=== PATIENT | male | born 1970 | race Caucasian/White ===

== ENCOUNTER 2017-09-07 17:03 | Inpatient (IN) | payer BC, OTHER ==
[~2017-09-07] VITALS: Ht 188 cm; Wt 154.2 kg
[2017-09-07 17:50] VITALS: BP 150/97
--- NOTE | 2017-09-07 17:50 | NUR ---
Pre-Admission Assessment Ex Assistant/Program Director encounters pt in intake office with family present. Pt has a blunted affect and depressed mood, sensitive to light and complains of muscle spasm and fatigue. Pt's initial COWS 13. Pt endorses using 0.5 grams of Heroin daily, via smoking. Pt endorses using for a few years. Pt's last use was 09/05/17 when he consumed 1 gram. Pt is currently at [facility], since 09/05/17. Pt has been to treatment a couple of times, including presently at [place], [place] in 2014 and [facility] in 2018. Pt endorses a PMH of DM II, Gout, HTN and had [place] Palsy last month. Pt is seen by Dr. Buchanan at [facility]. Pt is A/O x4 and able to make needs known. Pt denies HI/SI, A/VH or any other associated symptoms.
[2017-09-07] MEDS ORDERED: METF10004 PO (18:18)
[2017-09-07] MEDS ORDERED: ALLO100T PO (18:18)
[2017-09-07] MEDS ORDERED: ATOR40TA PO (18:18)
[2017-09-07] MEDS ORDERED: METO-357 PO (18:18)
[2017-09-07] MEDS ORDERED: LISI1TAB11 PO (18:18)
[2017-09-07] MEDS ORDERED: FURO20TA4 PO (18:18)
[2017-09-07] MEDS ORDERED: FOLI1TAB16 PO (18:18)
[2017-09-07 18:30] LABS: *AMPHETAMINE, URINE NEGATIVE (NEGATIVE); *BARBITURATE, URINE NEGATIVE (NEGATIVE); *CANNABINOID, URINE NEGATIVE (NEGATIVE); *COCCAINE, URINE POSITIVE (NEGATIVE); *OPIATE, URINE POSITIVE (NEGATIVE); *PHENCYCLIDINE SCREEN,URINE NEGATIVE (NEGATIVE)
[2017-09-07] MEDS ORDERED: LOPERAMIDE HCL 2 MG CAPSULE PO PRN ×2 (19:00)
[2017-09-07] MEDS ORDERED: BUPRENORPHINE HCL 2 MG TAB.SUBL SL PRN (19:00)
[2017-09-07] MEDS ORDERED: DICYCLOMINE HCL 20 MG TABLET PO PRN (19:00)
[2017-09-07] MEDS ORDERED: ONDANSETRON ODT 4 MG TAB.RAPDIS SL PRN (19:00)
[2017-09-07] MEDS ORDERED: ACETAMINOPHEN 325 MG TABLET PO PRN (19:00)
[2017-09-07] MEDS ORDERED: HYDROXYZINE PAMOATE 25 MG CAPSULE PO PRN (19:00)
[2017-09-07] MEDS ORDERED: MIRALAX 17 GM POWD.PACK PO PRN (19:00)
[2017-09-07] MEDS ORDERED: MAGNESIUM HYDROXIDE 30 ML LIQUID UDC PO PRN (19:00)
[2017-09-07] MEDS ORDERED: MAG HYDROX/AL HYDROX/SIMETH 30 ML LIQUID UDC PO PRN (19:00)
[2017-09-07] MEDS ORDERED: ONDANSETRON 4 MG/2 ML VIAL IM PRN (19:00)
[2017-09-07] MEDS ORDERED: IBUPROFEN 600 MG TABLET PO PRN (19:00)
[2017-09-07] MEDS: LISINOPRIL 20 MG TABLET PO SCH ×2 (19:22→19:38)
[2017-09-07] MEDS ORDERED: NICOTINE POLACRILEX 4 MG GUM-PK OF TEN BC PRN (19:30)
[2017-09-07] MEDS ORDERED: NICOTINE 14 MG/24HR PATCH TD PRN (19:30)
[2017-09-07 20:00] VITALS: BP 152/97
--- NOTE | 2017-09-07 20:00 | NUR ---
Admission Note Pt is a 47 year old male admitted to [facility] on 09/07/2017 for Opiate Withdrawal, on the unit at 2000. Pt has NKA, denies history of seizures. Pt was able to provide urine drug screen. COWS 9: pt presents with aches, skin is flushed, and fatigue, BS BP 152/97, pulse 104, resp 16, Spo2 98% room air, weight 340 pounds and height 62. Pt reports his primary care provider is Dr. Buchanan at [facility]. Pt reports he smokes 1 pack of cigarettes daily, denies being hospitalized within the past 30 days. Pt is fatigued, and reports, I just want to sleep. Pt responses to assessment questions are vague. Substance abuse History is as follows: Heroin 1g/daily last intake of 1 gram on 09/05/2017, at this rate for the past 1 year. Cocaine pt uses unspecified quantities, non-daily. Pt reports his reason for hospitalization is because, "I want to stop using heroin". Pt reports his trigger to use is due to increased anxiety and mal-adaptive coping mechanisms. When pt does not use heroin he reports signs and symptoms of "body aches, sweats, anxiety, and fatigue". Pt reports he has been to other treatment center, however is a poor historian regarding treatment history, pt cannot recall the dates of his stay. He reports being to [place], to a treatment center in [place] and to [facility]. Past medical history: DM II, HTN, Dyslipidemia, Gout, [place] Palsy (1 month ago) and surgical repair of umbilical hernia. Upon assessment, respirations even/unlabored, denies SOB/chest pain, PERRLA. Skin is noted to be clammy, bowel sounds hyperactive x4 quadrants, skin is intact. Pt denies SI/HI. Educational packets provided and left at bed side, pt oriented to room an encouraged to nofiy staff with any concerns. Safety measures in place, call light within reach, side rails up x2, bed locked and in low position. Will continue to monitor.
[2017-09-07 21:00] VITALS: BP 143/83
[2017-09-07 21:11] LABS: BASOPHILS # (AUTO) 0.1 K/uL (0.0-8.0); BASOPHILS % (AUTO) 0.8 % (0.0-2.0); EOSINOPHILS % (AUTO) 0.2 % (0.0-7.0); LYMPHOCYTES % (AUTO) 18.2 % (20.5-51.5); MEAN CORPUSCULAR HEMOGLOBIN 24.9 uug (23.8-33.4); MEAN CORPUSCULAR HGB CONC 33 g/dL (32.5-36.3); MEAN CORPUSCULAR VOLUME 74.7 fL (73.0-96.2); MONOCYTES # (AUTO) 0.6 K/uL (2.0-10.0); MONOCYTES % (AUTO) 5.9 % (0.0-11.0); NEUTROPHILS # (AUTO) 8.2 K/uL (1.8-8.9); NEUTROPHILS % (AUTO) 74.9 % (38.5-71.5); PLATELET COUNT (AUTO) 396 K/uL (152-348); RED BLOOD CELL COUNT(AUTO) 5.62 MIL/uL (4.06-5.63); WHITE BLOOD COUNT (AUTO) 10.9 K/uL (3.6-10.2)
[2017-09-07 21:29] LABS: ALANINE AMINOTRANSFERASE 18 U/L (16-63); ALKALINE PHOSPHATASE 90 U/L (50-136); ASPARTATE AMINOTRANSFERASE 16 U/L (15-37); CARBON DIOXIDE 28 mmol/L (21-32); CHLORIDE 96 mmol/L (98-107); CREATININE 1.1 mg/dL (0.6-1.3); GLUCOSE 293 mg/dL (74-106); MAGNESIUM 1.7 mg/dL (1.8-2.4); POTASSIUM 3.3 mmol/L (3.5-5.1); TOTAL PROTEIN, SERUM 7.8 g/dL (6.4-8.2); UREA NITROGEN, BLOOD 17 mg/dL (7-18)
[2017-09-07 21:34] LABS: ETHANOL < 3 MG/DL (0-0)
--- NOTE | 2017-09-07 22:00 | NUR ---
Nursing note Pt COWS 9, pt presents in bed, sleeping, easily arousable to name. Pt offered medications, however pt states, "No, I don't want Subutex, I don't want that stuff. I don't want anything please, I am sorry, I just want to sleep" Safety measures in place, will continue to monitor.
[2017-09-08] VITALS (8 sets, daily range): BP systolic 145–179; BP diastolic 93–107
[2017-09-08] MEDS: CLONIDINE HCL 0.1 MG TABLET PO PRN ×2 (00:23→11:59)
--- NOTE | 2017-09-08 00:30 | NUR ---
PRN Administration BP 167/99, Pulse 89. Pt denies SOB or chest pain. Clonidine 0.1mg PRN administered. Safety measures in place, will continue to monitor.
--- NOTE | 2017-09-08 01:35 | NUR ---
PRN Reassessment/Administration BP 179/99, pulse 98, Clonidine 0.1mg PRN not effective. Pt denies chest pain or SOB. Hydralazine 25mg PRN and Ativan 2mg PRN administered. Safety measures in place, will continue to monitor
[2017-09-08] MEDS ORDERED: hydrALAZINE HCL 25 MG TABLET PO ONE (02:00)
[2017-09-08] MEDS: LORAZEPAM 1 MG TABLET PO PRN ×2 (02:05→11:59)
--- NOTE | 2017-09-08 02:35 | NUR ---
PRN Reassessment Upon reassessment, pt is in bed, noted to be sleeping with eyes closed, sitter at bedside, Safety measures in place, will continue to monitor. Addendum: 09/08/17 at 0411 by JAMES CAROLINA RN WRONG NOTE - DISREGARD
--- NOTE | 2017-09-08 02:35 | NUR ---
PRN Reassessment BP 150/98, pulse 80, resp 19. Pt in bed, sleeping, resp even/unlabored. Safety measures in place, will continue to monitor.
--- NOTE | 2017-09-08 04:00 | NUR ---
COWS Deferred d/t pt sleeping - to assess while pt is awake as ordered. BP 145/96, pulse 70, Spo2 96% RA. Pt is in bed, noted to be sleeping with eyes closed Safety measures in place, will continue to monitor.
--- NOTE | 2017-09-08 07:00 | NUR ---
End of Shift Pt is a 47 year old male admitted for Opiate withdrawal. During shift, pt remained in room all throughout shift. Pt refused Subutex available and stated, "No, I dont want Subutex, I dont want anything please, I just want to sleep". Pt educated regarded medications and their benefits. Pt presented with elevated blood pressure, Clonidine 0.1mg PRN, Hydralazine 25mg PRN, Ativan 2mg PRN administered along with scheduled BP medications. BP 179/99 eventually decreased to 145/96. Pt continues to refuse Subutex, COWS 9. Pt slept for 11 hours, intake of 500 ml PO, voids x1. Safety measures in place, Endorsed to day shift nurse.
--- NOTE | 2017-09-08 08:05 | NUR ---
START OF SHIFT PT IS A 47 Y/O M ADMITTED FOR MEDICALLY SUPERVISED OPIATE WITHDRAWAL. PT IS PLACED ON PRN SUBUTEX HOWEVER HAS REFUSED TO TAKE IT AT THIS TIME. PT STATES, "I WANT TO TRY TO DO THIS WITHOUT TAKING IT, I REALLY DONT WANT TO TAKE ANY MEDS RIGHT NOW. PT WAS OKAY WITH TAKING BP MEDS, METFORMIN, MAG OX, K+ REPLACEMENTS." EDUCATED PT WITH MEDICATION BENEFITS. PT APPEARS FLUSHED, DIAPHORETIC, BEADS OF SWEAT ON FACE, PRESENTS HIGH BP, DILATION OF THE PUPILS, RUNNY NOSE, YAWNING, HOT/COLD FLASHES, CHILLS, RESTLESSNESS, ANXIETY AND AGITATION, HIGHLY IRRITABLE, LOSS OF APPETITE. PT REFUSED TO HAVE SIDE RAILS UPX2, HAS THE BED FLAT. EDUCATED PT ON MEDICATIONS, BENEFITS AND EFFECTS, AND S/S TO REPORT. ENCOURAGED PT TO INCREASE FLUIDS TOLERATED. SIDE RAILS UPX2, BED IN LOWEST POSITION. CALL LIGHT IS WITHIN REACH. SAFETY MEASURES IN PLACE. WILL CONTINUE TO MONITOR.
[2017-09-08] MEDS: ALLOPURINOL 100MG PO SCH (08:24)
[2017-09-08] MEDS: METFORMIN 1000MG PO SCH ×2 (08:24→17:04)
[2017-09-08] MEDS: FOLIC ACID 1MG PO SCH (08:24)
[2017-09-08] MEDS: LISINOPRIL 20 MG TABLET PO SCH (08:24)
[2017-09-08] MEDS: FUROSEMIDE 20 MG PO SCH (08:25)
[2017-09-08] MEDS ORDERED: MAGNESIUM OXIDE 400 MG TABLET PO ONE (09:00)
[2017-09-08] MEDS ORDERED: POTASSIUM CHLORIDE 20 MEQ TAB.PRT.SR PO ONE (09:00)
[2017-09-08] MEDS ORDERED: TUBERCULIN,PURIF.PROT.DERIV. 5 TU/0.1 ML TEST ID ONE (09:00)
--- NOTE | 2017-09-08 09:00 | NUR ---
K-DUR 40 MEQ PO X1, AND MAG OX 400 MG PO X1 GIVEN.
--- NOTE | 2017-09-08 10:30 | NUR ---
RELEASE OF INFO RELEASE OF INFORMATION HAS BEEN UPDATED; PT HAS GIVEN VERBAL CONSENT TO HAVE HIS MARVAT ON THE RELEASE OF INFORMATION.
--- NOTE | 2017-09-08 12:00 | NUR ---
PRN CLONIDINE 0.1 MG, ATIVAN 2 MG, IMODIUM 4 MG PO PRNS GIVEN; BP: 169/107, HR:112. PT IS LAYING IN BED, NO EYE CONTACT WHEN ANSWERING QUESTIONS WHILE BARELY OPENING HIS EYES. PT APPEARS FLUSHED WITH BEADS OF SWEAT ON WHOLE FACE, APPEARS ANXIOUS, IRRITABLE AND AGITATED. ROOM AND HALLWAY SMELLED OF FECAL ODOR, PT REPORTED HAVING DIARRHEA. PT STILL REFUSING SUBUTEX AND OTHER COMFORT MEDS AT THIS TIME. COWS 20. WILL MONITOR AND REASSESS.
--- NOTE | 2017-09-08 13:37 | NUR ---
REASSESSMENT BP: 161/101, HR; 125. PT REPORTS FEELING MORE CALM, HOWEVER STILL RESTLESS AND SWEATING DECREASED. PT REPORTS HAVING NO BOUTS OF DIARRHEA AFTER HAVING IMODIUM. WILL CONTINUE TO MONITOR. Addendum: 09/08/17 at 1432 by BETTYE PEÑA RN PT C/O INCREASED S/S OF WITHDRAWAL AND REQUESTS TO TAKE SUBUTEX.
[2017-09-08] MEDS ORDERED: hydrALAZINE HCL 50 MG TABLET PO PRN (14:00)
[2017-09-08] MEDS ORDERED: DEXTROSE 50% 50 ML DISP.SYRIN IV PRN (14:00)
[2017-09-08] MEDS ORDERED: BUPRENORPHINE HCL 2 MG TAB.SUBL SL ONE ×2 (14:00→21:15)
[2017-09-08] MEDS ORDERED: CLONIDINE HCL 0.1 MG TABLET PO ONE (14:00)
--- NOTE | 2017-09-08 14:00 | NUR ---
SUBUTEX 4MG PO X1 AND CLONIDINE 0.1 MG PO X1 ORDERED AND GIVEN.
[2017-09-08] MEDS: BLOOD SUGAR DIAGNOSTIC 1 EACH STRIP VI SCH ×2 (16:59→20:28)
--- NOTE | 2017-09-08 17:00 | NUR ---
SENDY BS 277; 9 UNITS GIVEN.
[2017-09-08] MEDS: INSULIN REGULAR, HUMAN 300 UNIT/3 ML VIAL SQ PRN (17:02)
--- NOTE | 2017-09-08 17:39 | NUR ---
PRN HYDRALAZINE 50 MG PO PRN GIVEN FOR BP:153/99, HR: 134, RR: 20. PT APPEARS ANXIOUS AND FIDGETY, DIAPHORETIC. ENCOURAGED PT TO NOT CONSUME ANY CAFFEINATED BEVERAGES AND REFRAIN FROM SMOKING. WILL MONITOR CLOSELY. Addendum: 09/08/17 at 1744 by BETTYE PEÑA RN CORRECT TIME 1706.
--- NOTE | 2017-09-08 18:15 | NUR ---
REASSESSMENT BP: 132/78, HR: 127, RR: 18. PT IS A/OX4, SITTING UP IN BED, APPEARS FLUSHED, STATES HE IS FEELING MUCH BETTER COMPARED TO THE REST OF THE DAY. WILL CONTINUE TO MONITOR.
--- NOTE | 2017-09-08 19:19 | NUR ---
END OF SHIFT PT HAS REFUSED SUBUTEX UNTIL AROUND MIDDAY TODAY; FOR INCREASED S/S OF WITHDRAWAL. PT REPORTS MED EFFECTIVE FOR S/S. LAST COWS 17. HR AND BP HAS BEEN PERSISTENTLY HIGH THROUGHOUT SHIFT. MAG OX 400MG AND K+ 40 MEQ X1 PO ORDERS GIVEN @0900. ATIVAN 2MG, CLONIDINE 0.1MG FOR BP 161/98, AND IMODIUM FOR C/O OF DIARRHEA PO PRNS GIVEN @1200. SUBUTEX 4MG AND CLONIDINE 0.1 MG FOR BP PO X1 ORDERS GIVEN @1427. HYDRALAZINE 50 MG PO PRN GIVEN FOR BP 153/99 @1706. ACCUCHECK ORDERED WITH SLIDING SCALE; @1600 BS 277 - 9 UNITS GIVEN. PT C/O EXTREME FATIGUE, HAS BEEN ISOLATIVE IN ROOM IN BED THROUGHOUT THE DAY UNTIL 1630, PT GOT OUT OF BED TO ASK FOR A CLEAN T-SHIRT AND PANTS. PT ATE 0% OF BREAKFAST AND LUNCH, ATE 50% OF DINNER. PT WENT DOWN FOR A CIGARETTE AT 1910 AND HAD INCREASED FATIGUE, SOB, PT HAD TO BE BROUGHT BACK TO ROOM VIA WHEELCHAIR. ENCOURAGED PT NOT CONSUME ANY CAFFEINATED DRINKS AND REFRAIN FROM SMOKING CIGS. ENCOURAGED PT TO INCREASE FLUIDS FOR HYDRATION AND TO INCREASE FOOD CONSUMPTION. DIETARY HAS COME TO EDUCATE PT ABOUT DIABETIC CONSISTENT CARB DIET AND TO ENCOURAGE PT TO EAT D/T LOW ELECTROLYTES. SAFETY MEASURES IN PLACE. WILL GIVE PERTINENT AND ENDORSEMENT TO DREDGE BOAT ENGINEER.
--- NOTE | 2017-09-08 19:53 | NUR ---
START OF SHIFT NOTE Rcvd report from outgoing nurse, pt. is currently in his room. Pt. is a 47 y/o male A/O to person, place, time, and purpose. Pt. was admitted for medically supervised withdrawal from Heroin. Pt. has a past medical h/o HTN, DMII, hyperlipidemia, [place] Palsey, and gout. Pt. presents w/ depressed and withdrawn mood, irritability, blunt affect, anxiety, lethargy, sweats, and diarrhea. PRN Ativan 2mg, Clonidine 0.1mg, and Imodium @ 1200 for anxiety, elevated BP, and explosive diarrhea, noted effective. PRN Sbutex 4mg and Clonidine 0.1mg @ 1400 for s/s of withdrawal, noted effective. PRN Hydralazine 50mg @ 1700 for elevated BP, noted effective. Pt. has constant elevated BP throughout the day, averaging 160s/90s. Pt. denies S/I and H/I. Last COWS 17 @ 1600. Call light is within reach. Pt. will continue to be monitored and needs met.
[2017-09-08] MEDS: INSULIN REGULAR, HUMAN 300 UNITS/3 ML VIAL SQ PRN (20:34)
[2017-09-08] MEDS ORDERED: LORAZEPAM 1 MG TABLET PO ONE (21:15)
[2017-09-08] MEDS ORDERED: BUPRENORPHINE HCL 2 MG TAB.SUBL SL PRN ×2 (21:15)
[2017-09-08] MEDS ORDERED: LABETALOL HCL 100 MG TABLET PO ONE (21:15)
[2017-09-08] MEDS: METHOCARBAMOL 750 MG TABLET PO PRN (23:15)
--- NOTE | 2017-09-08 23:15 | NUR ---
PRN ADMINISTRATION PRN Robaxin 750mg and Vistaril 25mg given for anxiety and body aches. Will reassess pt. in 1 hr.
[2017-09-08] MEDS ORDERED: LABETALOL HCL 100 MG TABLET ONE (23:21)
--- NOTE | 2017-09-09 | NUR ---
COWS DEFERRED AND V/S REFUSED Pt. is in bed w/ his eyes closed. Pt.'s breathing is unlabored and even.
--- NOTE | 2017-09-09 00:15 | NUR ---
PRN REASSESSMENT Pt. is in bed w/ his eyes closed. Pt.'s breathing is unlabored and even.
--- NOTE | 2017-09-09 04:06 | NUR ---
COWS DEFERRED AND V/S REFUSED Pt. is in bed w/ his eyes closed. Pt.'s breathing is evena nd unlabored.
--- NOTE | 2017-09-09 07:08 | NUR ---
END OF SHIFT NOTE Endorsed pt. to oncoming nurse, pt. is currently in his room. Pt. is a 47 y/o male A/O to person, place, time, and purpose. Pt. was admitted for medically supervised withdrawal from Heroin. Pt. has a past medical h/o HTN, DMII, hyperlipidemia, [place] Palsey, and gout. Pt. continues to present w/ depressed and withdrawn mood, irritability, blunt affect, anxiety, lethargy, sweats, and body aches. Pt. continues to minimize withdrawal symptoms. PRN Robaxin 750mg and Vistaril 25mg given @ 2315 for anxiety and body aches, noted effective. Pt.s BP remained WNL, last BP: 126/87 @ 2300. Pt.s fluid intake was 950 ml. Pt. voided 3 times and slept for 8.25 hrs. Last COWS 14 @ 2000. Call light is within reach.
--- NOTE | 2017-09-09 07:45 | NUR ---
START OF SHIFT PT IS A 47 Y/O M ADMITTED FOR MEDICALLY SUPERVISED OPIATE WITHDRAWAL. PT IS PLACED ON PRN SUBUTEX FOR MANAGEMENT OF WITHDRAWAL SYMPTOMS. PT HAS A FLAT AFFECT, POOR EYE CONTACT, APPEARS NERVOUS AND WITHDRAWN, PRESENTS FACIAL FLUSHING, DIAPHORESIS, INTERMITTENT COLD/HOT FLASHES AND CHILLS, NASAL CONGESTION, OCCASIONAL TEARING, YAWNING, RESTLESSNESS, ANXIETY AND AGITATION, GENERALIZED BODY ACHES AND FATIGUE. DENIES HAVING DIARRHEA SINCE YESTERDAY. LAST COWS 14, VISTARIL, BENADRYL, ROBAXIN PRNS GIVEN LAST SHIFT. PT IS PLACED ON ACCUCHECKS WITH INSULIN SLIDING SCALE FOR MANAGEMENT OF BS. PT REFUSED TO HAVE SIDE RAILS UPX2, AND HAS THE BED FLAT. EDUCATED PT ON PLAN OF CARE, MEDICATIONS, BENEFITS AND EFFECTS, S/S TO REPORT AND ON DIABETIC DIET. ENCOURAGED PT TO INCREASE FLUIDS TOLERATED. SIDE RAILS UPX2, BED IN LOWEST POSITION. CALL LIGHT IS WITHIN REACH. SAFETY MEASURES IN PLACE. WILL CONTINUE TO MONITOR.
[2017-09-09 08:00] VITALS: BP 143/84
[2017-09-09 08:05] LABS: HEPATITIS B SURFACE AG Negative (Negative)
[2017-09-09] MEDS: BLOOD SUGAR DIAGNOSTIC 1 EACH STRIP VI SCH ×4 (08:09→20:49)
[2017-09-09] MEDS: LISINOPRIL 20 MG TABLET PO SCH (08:11)
[2017-09-09] MEDS: FOLIC ACID 1MG PO SCH (08:12)
[2017-09-09] MEDS: METFORMIN 1000MG PO SCH ×2 (08:12→17:53)
[2017-09-09] MEDS: ALLOPURINOL 100MG PO SCH (08:12)
[2017-09-09] MEDS: AMLODIPINE 5 MG TABLET PO SCH (08:12)
[2017-09-09] MEDS: FUROSEMIDE 20 MG PO SCH (08:12)
--- NOTE | 2017-09-09 08:18 | NUR ---
PRN SUBUTEX 2 MG PO PRN GIVEN; PT PRESENTS SWEATING, FACIAL FLUSHING, CHILLS, INTERMITTENT COLD/HOT FLASHES, STOMACH CRAMPS, JOINT AND MUSCLE ACHES, TREMORS NOTED, AND INCREASED BREATHING RATE W/ SPO2 98%. WILL CONTINUE TO MONITOR. Addendum: 09/09/17 at 1122 by BETTYE PEÑA RN [facility] 12.
[2017-09-09] MEDS: INSULIN REGULAR, HUMAN 300 UNIT/3 ML VIAL SQ PRN ×3 (08:22→17:35)
[2017-09-09 08:31] LABS: CREATININE 1.2 mg/dL (0.6-1.3); MAGNESIUM 1.9 mg/dL (1.8-2.4); POTASSIUM 3.7 mmol/L (3.5-5.1)
[2017-09-09 08:45] LABS: BASOPHILS % (AUTO) 0.5 % (0.0-2.0); EOSINOPHILS # (AUTO) 0.1 K/uL (0.0-0.7); EOSINOPHILS % (AUTO) 1.3 % (0.0-7.0); HEMATOCRIT 42.7 % (36.7-47.1); HEMOGLOBIN 14.2 g/dL (12.5-16.3); LYMPHOCYTES # (AUTO) 2.4 K/uL (20.0-40.0); LYMPHOCYTES % (AUTO) 25.2 % (20.5-51.5); MEAN CORPUSCULAR HGB CONC 33 g/dL (32.5-36.3); MEAN CORPUSCULAR VOLUME 75.2 fL (73.0-96.2); MONOCYTES # (AUTO) 0.6 K/uL (2.0-10.0); MONOCYTES % (AUTO) 6.6 % (0.0-11.0); NEUTROPHILS # (AUTO) 6.5 K/uL (1.8-8.9); NEUTROPHILS % (AUTO) 66.4 % (38.5-71.5); PLATELET COUNT (AUTO) 330 K/uL (152-348); RED BLOOD CELL COUNT(AUTO) 5.67 MIL/uL (4.06-5.63); WHITE BLOOD COUNT (AUTO) 9.7 K/uL (3.6-10.2)
--- NOTE | 2017-09-09 09:18 | NUR ---
REASSESSMENT PT IS LAYING IN BED WATCHING TV. PT STATES THE MED SUBUTEX WAS EFFECTIVE FOR HIS WITHDRAWAL SYMPTOMS AND NOW "FEELING BETTER." SAFETY MEASURES IN PLACE. WILL CONTINUE TO MONITOR.
[2017-09-09] MEDS: CLONIDINE HCL 0.1 MG TABLET PO PRN ×2 (10:54→15:17)
--- NOTE | 2017-09-09 10:54 | NUR ---
PRN CLONIDINE 0.1 MG PO, BENTYL 20 MG PO, ZOFRAN 4 MG SL, PRNS GIVEN. PT IS IN BED, RESPIRATIONS SLIGHTLY LABORED AND HAS FACIAL FLUSHING, C/O STOMACH CRAMPS, NAUSEA, SWEATING, CHILLS, COLD/HOT FLASHES, ANXIETY AND AGITATION. WILL MONITOR AND REASSESS.
--- NOTE | 2017-09-09 11:54 | NUR ---
REASSESSMENT PT IS LAYING IN BED WATCHING TV AND APPEARS CALM. PT REPORTS SWEATING, CHILLS, STOMACH CRAMPS, ANXIETY AND AGITATION HAS DECREASED AND BEEN FEELING VERY COMFORTABLE. SAFETY MEASURES IN PLACE. WILL CONTINUE TO MONITOR.
[2017-09-09 12:00] VITALS: BP 139/76
[2017-09-09] MEDS: DICYCLOMINE HCL 20 MG TABLET PO SCH ×2 (15:14→20:49)
[2017-09-09 16:00] VITALS: BP 107/49
[2017-09-09] MEDS ORDERED: LOPE2CAP40 PO (17:36)
[2017-09-09] MEDS ORDERED: HYDR-3895 PO (17:36)
[2017-09-09] MEDS ORDERED: CLON0.1T14 PO (17:36)
[2017-09-09] MEDS ORDERED: METO-357 PO (17:36)
[2017-09-09] MEDS ORDERED: IBUP-1955 PO (17:36)
[2017-09-09] MEDS ORDERED: AMLO5TAB2 PO (17:36)
[2017-09-09] MEDS ORDERED: DICY20TA28 PO (17:36)
--- NOTE | 2017-09-09 19:45 | NUR ---
END OF SHIFT PT HAS BEEN GIVEN SUBUTEX 2MG SL PRN IN AM AND TOLERATED WELL. PT WILL BE MEDICALLY CLEARED TO BE DISCHARGED TOMORROW. PT HAS BEEN GIVEN CLONIDINE, BENTYL, AND ZOFRAN PRNS DURING SHIFT. LAST COWS 11. PT STATES HE IS FEELING MUCH BETTER TODAY; MAIN C/ IS FATIGUE. PT HAS BEEN IN BED MOST OF THE DAY UNTIL LATER IN SHIFT, PT IS IN THE REQ ROOM MINGLING WITH PEERS. COULD NOT PROVIDE STOOL SAMPLE D/T NO BM. LAST ACCUCHECK BS WAS 221 @1630; 6 UNITS GIVEN. PT ATE 75% OF MEALS. FLUID INTAKE 2602ML, VOIDED X7, BM 0. SAFETY MEASURES IN PLACE. ENDORSEMENT GIVEN TO SCIENTIST NURSE.
--- NOTE | 2017-09-09 19:55 | NUR ---
START FO SHIFT NOTE Rcvd report from outgoing nurse, pt. is in his room. Pt. is a 47 y/o male A/O to person, place, time, and purpose. Pt. was admitted for medically supervised withdrawal from Opiates. Pt. presents w/ lethargy, flat affect, depressed mood, and sweats. PRN Subutex 2mg @ 0818 for increased withdrawal symptoms, noted effective. PRN Clonidine 0.1mg, Bentyl, and Zofran given @ 1054 for N&V and elevated BP, noted effective. Pt. is more compliant w/ treatment program. Pt. is not following Diabetic diet. Last BS 221 @ 1730. Pt. denies S/I and H/I. Pt. to be discharged 09/10/17. Last COWS 11 @ 1600. Call light is within reach. Pt. will continue to be monitored and needs met.
[2017-09-09 20:00] VITALS: BP 108/53
[2017-09-09] MEDS: INSULIN REGULAR, HUMAN 300 UNITS/3 ML VIAL SQ PRN (20:52)
[2017-09-09] MEDS ORDERED: MAGNESIUM OXIDE 400 MG TABLET PO ONE (21:00)
[2017-09-09] MEDS ORDERED: POTASSIUM CHLORIDE 10 MEQ TAB.PRT.SR PO ONE (21:00)
[2017-09-09] MEDS ORDERED: METOPROLOL SUCC 50 MG PO ONE (21:00)
--- NOTE | 2017-09-10 | NUR ---
COWS DEFERRED AND V/D REFUSED Pt. is in bed w/ his eyes closed. Pt.'s breathing is unlabored and even.
--- NOTE | 2017-09-10 04:00 | NUR ---
COWS DEFERRED AND V/S REFUSED Pt. is in bed w/ his eyes closed. Pt.'s breathing is unlabored and even.
--- NOTE | 2017-09-10 07:20 | NUR ---
END OF SHIFT NOTE Endorsed pt. to oncoming nurse, pt. is in his room. Pt. is a 47 y/o male A/O to person, place, time, and purpose. Pt. was admitted for medically supervised withdrawal from Opiates. Pt. continues to present w/ flat affect, depressed mood, and sweats. Pt. states gout is starting to become active and cause pain in his right foot, relieved w/ medication. Pt. rcvd no PRN medications during shift. Pt. is not following Diabetic diet. Last BS 274 @ 2029, 4 units given per scale. Pt.s fluid intake was 1000 ml and he voided 3 times. Pt. slept for 6 hrs. Pt. to be discharged 09/10/17. Last COWS 8 @ 1999. Call light is within reach.
[2017-09-10] MEDS: BLOOD SUGAR DIAGNOSTIC 1 EACH STRIP VI SCH (07:36)
[2017-09-10] MEDS: INSULIN REGULAR, HUMAN 300 UNIT/3 ML VIAL SQ PRN (07:40)
[2017-09-10 08:00] VITALS: BP 116/65
--- NOTE | 2017-09-10 08:03 | NUR ---
Start of shift Patient 47 y/o male admitted for medically supervised withdrawal of heroin and cocaine. Pt completed 5 day Ativan taper and Subutex. Patient A&O X4. Resp even and unlabored. Pt has flat affect and depress mood. Denies c/o SI/HI. Blood glucose 218. 6 units regular slide scale insulin geophysical laboratory director per orders. Pt for discharge today. Last COWS 8. Patient is compliant with medication regimen. Encourage pt to attend group therapies/sessions to learn new coping skills to prevent relapse. NKA. FULL CODE. All safety precautions in place. Call light within reach. Will continue to monitor for withdrawal symptoms.
[2017-09-10] MEDS: DICYCLOMINE HCL 20 MG TABLET PO SCH (08:57)
[2017-09-10 08:58] VITALS: BP 116/65
[2017-09-10] MEDS: METHOCARBAMOL 750 MG TABLET PO PRN (08:58)
[2017-09-10] MEDS: LISINOPRIL 20 MG TABLET PO SCH (08:58)
[2017-09-10] MEDS: AMLODIPINE 5 MG TABLET PO SCH (08:58)
[2017-09-10] MEDS: FUROSEMIDE 20 MG PO SCH (08:58)
[2017-09-10] MEDS: METFORMIN 1000MG PO SCH (08:59)
[2017-09-10] MEDS: ALLOPURINOL 100MG PO SCH (08:59)
[2017-09-10] MEDS: FOLIC ACID 1MG PO SCH (08:59)
--- NOTE | 2017-09-10 09:00 | NUR ---
PRN MEDICATIONS ROBAXIN 750 MF PO FOR BODY ACHES MOTRIN 600 MG PO FOR FOOT PAIN R/T GOUT #7/10 TYLENOL 650 MG PO FOR FOOT PAIN R/T GOUT #7/10
--- NOTE | 2017-09-10 10:00 | NUR ---
REASSESS- PT REPORTS PAIN NOW #2/10, MEDICATIONS EFFECTIVE.
--- NOTE | 2017-09-10 10:28 | NUR ---
Discharge note- Pt has been discharged from [facility]. Pt is in stable condition, VS WNL. Denies suicidal and homicidal ideations at this time. All documentation has been completed, paperwork signed and dated. Pt left with all his belongings, medications and prescriptions. Pt has been discharged on 09/10/17 at 1028. notified.
== END 2017-09-10 10:28 | disposition other institution (70) | DRG 895 ==
LOC: SRC 17:14
PROVIDERS: ADMIT Internal Medicine; ATTEND Internal Medicine
PROC: HZ2ZZZZ Detoxification Services for Substance Abuse Treatment (ICD-10-PCS; principal; 2017-09-07)
PROC: HZ51ZZZ Individual Psychotherapy for Substance Abuse Treatment, Behavioral (ICD-10-PCS; 2017-09-09)
DX: F11.23 Opioid dependence with withdrawal (principal); E87.1 Hypo-osmolality and hyponatremia; E78.5 Hyperlipidemia, unspecified; M10.9 Gout, unspecified; F17.210 Nicotine dependence, cigarettes, uncomplicated; I15.9 Secondary hypertension, unspecified; E83.42 Hypomagnesemia; E86.0 Dehydration; F14.10 Cocaine abuse, uncomplicated; E87.6 Hypokalemia; E87.8 Other disorders of electrolyte and fluid balance, not elsewhere classified; E11.9 Type 2 diabetes mellitus without complications; D72.829 Elevated white blood cell count, unspecified
CPT/HCPCS: 36415; 80307; 80353; 80361; 83735; 84100; 85025; 86580; 86592; 86705; 86803; 87340; 87806; G0480; J1815; Q0162